=== PATIENT | male | born 1965 | race Caucasian/White ===

== ENCOUNTER 2017-12-24 11:55 | Emergency (ER) | payer OTHER ==
--- NOTE | 2017-12-24 11:59 | ED GENERAL ADULT ---
History of Present Illness General Chief Complaint: Fall Stated Complaint: BIBA HIP PAIN S/P FALL TODAY Source: patient Exam Limitations: no limitations Vital Signs & Intake/Output Vital Signs & Intake/Output Vital Signs Date Time Temp Pulse Resp B/P B/P Pulse O2 O2 Flow FiO2 Mean Ox Delivery Rate 12/24 1450 98.1 68 18 118/82 99 Room Air 12/24 1200 97.7 72 16 126/81 97 Room Air Allergies Coded Allergies: codeine (Severe, FACIAL EDEMA 12/24/17) Penicillins (Intermediate, GI DISTRESS 12/24/17) erythromycin base (From ERYTHROCIN) (Intermediate, GI DISTRESS 12/24/17) metformin (From GLUCOPHAGE) (Intermediate, GI DISTRESS 12/24/17) theophylline (RASH 12/24/17) Reconcile Medications Carvedilol 12.5 MG TABLET 1 TAB PO BID HEART (Reported) Gabapentin 600 MG TABLET 1 TAB PO QPM SLEEP (Reported) Montelukast Sodium (Singulair) 10 MG TABLET 1 TAB PO DAILY ALLERGIES ( Reported) Omeprazole 40 MG CAPSULE.DR 1 CAP PO DAILY GI (Reported) Oxycodone HCl/Acetaminophen (Percocet 5-325 MG Tablet) 5 MG-325 MG TABLET 1 TAB PO BID PAIN Sitagliptin Phosphate (Januvia) 100 MG TABLET 1 TAB PO DAILY DIABETES ( Reported) Valsartan (Diovan) 320 MG TABLET 1 TAB PO DAILY HEART (Reported) Triage Nurses Notes Reviewed? yes Onset: Abrupt Duration: hour(s): Timing: recent history HPI: 12/24/17 12 PM 52-year-old man presents to the emergency department by ambulance after slip and fall at his chiropractor's office landing on his left hip. He complains of severe pain to his left hip. He denies headache, neck pain, or other complaints. Past History Travel History Traveled to [place] past 21 day No Medical History Any Pertinent Medical History? see below for history Cardiovascular: hypertension Musculoskeletal: chronic back pain, osteoarthritis, chronic hip pain Surgical History Surgical History: bilateral hip arthroplasties Family History Hx Contributory? No Review of Systems Review of Systems Constitutional: Denies: fever. EENTM: Denies: visual changes. Respiratory: Denies: short of breath. Cardiovascular: Denies: chest pain. GI: Denies: abdominal pain. Genitourinary: Reports: no symptoms. Musculoskeletal: Reports: see HPI. Skin: Denies: rash. Neurological/Psychological: Reports: no symptoms. Hematologic/Endocrine: Reports: no symptoms. Immunologic/Allergic: Reports: no symptoms. Physical Exam Physical Exam General Appearance: well developed/nourished, alert, awake, anxious, mild distress Head: atraumatic, normal appearance Eyes: Bilateral: normal appearance, PERRL, EOMI. Ears, Nose, Throat: normal pharynx, normal ENT inspection Neck: normal inspection, supple Respiratory: normal breath sounds, chest non-tender, no respiratory distress Cardiovascular: regular rate/rhythm Peripheral Pulses: 4+ radial (R), 4+ radial (L) Gastrointestinal: soft, non-tender Back: decreased range of motion Extremities: tenderness (left hip) Neurologic/Psych: no motor/sensory deficits, awake, alert, oriented x 3 Skin: intact, normal color, warm/dry Core Measures ACS in differential dx? No CVA/TIA Diagnosis: No Sepsis Present: No Sepsis Focused Exam Completed? No Progress Differential Diagnoses I considered the following diagnoses in my evaluation of the patient: [Fracture, dislocation,] Plan of Care: Follow-up with the orthopedist tomorrow. The patient has an appointment scheduled. Initial ED EKG: none Departure Departure Disposition: HOME OR SELF CARE Condition: Stable Clinical Impression Primary Impression: Contusion, hip Departure Forms: Customer Survey General Discharge Information Prescriptions: Current Visit Scripts Oxycodone HCl/Acetaminophen (Percocet 5-325 MG Tablet) 1 TAB PO BID #6 TAB Comments X-rays of the left hip and pelvis are negative for fracture. The patient was ambulating without difficulty. Copies of his x-rays reports were sent to his chiropractor's office at the patient's request. The patient will follow up the orthopedist tomorrow. IMPRESSION: 1. Diffuse osteopenia. No acute fracture or dislocation. 2. Minimal degenerative change in the patellofemoral compartment. 3. Peripheral arterial calcifications. DICTATED BY: Beryl Tinajero MD DATE/TIME DICTATED:12/24/171152 WINE MASTER:DI[employer]OND DATE/TIME TRANSCRIBED:12/24/171152 CONFIDENTIAL, DO NOT COPY WITHOUT APPROPRIATE AUTHORIZATION. Critical Care Note Critical Care Note Critical Care Time: non-applicable
[2017-12-24] MEDS ORDERED: GABAPENTIN600 M1 PO (12:52)
[2017-12-24] MEDS ORDERED: DIOVAN320 M1 PO (12:52)
[2017-12-24] MEDS ORDERED: CARVEDILOL12.5 M1 PO (12:53)
[2017-12-24] MEDS ORDERED: SINGULAIR10 M1 PO (12:53)
[2017-12-24] MEDS ORDERED: JANUVIA100 M1 PO (12:53)
[2017-12-24] MEDS ORDERED: OMEPRAZOLE40 M1 PO (13:03)
--- NOTE | 2017-12-24 13:22 | RADIOLOGY REPORT ---
EXAMINATION: XR PELVIS XR HIP, LEFT CLINICAL INFORMATION: Fall with pain. Evaluate for fracture. COMPARISON: None TECHNIQUE: AP view (2 images) of the pelvis are obtained. AP and frog lateral views of the left hip are obtained. FINDINGS: The bilateral hip arthroplasties appear well-seated in near-anatomic alignment. There is no evidence of hardware failure, loosening, or fracture. There is moderate heterotopic ossification superior to the right greater trochanter and mild heterotopic ossification superior to the left greater trochanter. IMPRESSION: No evidence of acute injury.
[2017-12-24] MEDS ORDERED: PERCOCET 5-3251 EACH PO (14:33)
== END 2017-12-24 14:44 ==
LOC: ERH 11:55
DX: S70.02XA Contusion of left hip, initial encounter (principal); W01.0XXA Fall on same level from slipping, tripping and stumbling without subsequent striking against object, initial encounter; Y92.531 Health care provider office as the place of occurrence of the external cause
CPT/HCPCS: 72170; 73502-LT; 96372; J1885